=== PATIENT | male | born 1980 | race Caucasian/White ===

== ENCOUNTER 2019-09-25 13:56 | Inpatient (IN) | payer MEDICAID ==
[~2019-09-25] VITALS: Ht 175.3 cm; Wt 79.0 kg
[2019-09-25 14:00] VITALS: BP_SYST 146
--- NOTE | 2019-09-25 14:05 | NUR ---
Seizure precautions in place. Seizure pads applied to gurney. Side rails up.
--- NOTE | 2019-09-25 14:05 | NUR ---
Placed in room 03 . Placed on best worker, blood pressure machine and pulse oximeter. To gown for exam. Side rails up.
--- NOTE | 2019-09-25 14:10 | NUR ---
Patient to ER bed 03 to gown for evaluation. Side rails up.
--- NOTE | 2019-09-25 14:16 | NUR ---
Accucheck 132
--- NOTE | 2019-09-25 14:21 | NUR ---
Pt AAOx4, panamanian speaking[place] [facility] [place] tonic clonic seizures lasting 30 seconds each prior to arrival. Mild oral trauma, no active bleeding noted. Pt reports mild headache. Accucheck 136 on scene, Accucheck 132 upon triage. VSS. Skin pink dry and warm, breathing even and unlabored. No other injuries/complaints per pt/noted. Will continue to monitor.
--- NOTE | 2019-09-25 14:38 | NUR ---
Patient instructed that we need a urine sample. He verbalized understanding.
[2019-09-25 14:53] LABS: BASOPHILS % (AUTO) 0.8 % (0.0-2.0); EOSINOPHILS % (AUTO) 0.6 % (0.0-4.0); HEMATOCRIT 43.5 % (36-54); HEMOGLOBIN 14.7 g/dL (14.0-18.0); LYMPHOCYTES # (AUTO) 1.1 K/uL (1.0-5.5); MEAN CORPUSCULAR HEMOGLOBIN 33 pg (27-31); MEAN CORPUSCULAR HGB CONC 34 % (32-36); MEAN CORPUSCULAR VOLUME 96 fL (79.0-98.0); MONOCYTES # (AUTO) 0.8 K/uL (0.0-1.0); MONOCYTES % (AUTO) 13.7 % (1.7-9.3); NEUTROPHILS % (AUTO) 66.9 % (40.0-70.0); PLATELET COUNT (AUTO) 126 K/uL (130-430); RED BLOOD CELL COUNT(AUTO) 4.52 MIL/uL (4.2-6.2); WHITE BLOOD COUNT (AUTO) 5.9 K/uL (4.8-10.8)
[2019-09-25 15:05] LABS: ANION GAP 11 (5-15); CALCIUM 9.1 mg/dL (8.4-11.0); CHLORIDE 97 mmol/L (98-107); CREATININE 0.66 mg/dL (0.55-1.30); GLUCOSE 144 mg/dL (70-99); POTASSIUM 3.4 mmol/L (3.5-5.1); SODIUM SERUM 136 mmol/L (136-145); UREA NITROGEN, BLOOD 11 mg/dL (8-21)
[2019-09-25 15:11] LABS: ALANINE AMINOTRANSFERASE 134 U/L (12-78); ALBUMIN 4.3 g/dL (3.4-4.8); ASPARTATE AMINOTRANSFERASE 204 U/L (10-37); GFR AFRICAN AMERICAN 175 mL/min (>90)
[2019-09-25 15:13] LABS: ALCOHOL, BLOOD < 3 mg/dL (<10)
[2019-09-25] MEDS ORDERED: NACL 0.9% 1,000 ML IV ONE (16:00)
[2019-09-25] MEDS ORDERED: LORazepam 2 MG/ML VIAL IVP ONE (16:00)
[2019-09-25 16:21] LABS: BILIRUBIN,URINE 1+ (NEGATIVE); BLOOD, URINE 1+ (NEGATIVE); COLOR,URINE ORANGE (YELLOW); GLUCOSE,URINE NEGATIVE (NEGATIVE); KETONES,URINE TRACE (NEGATIVE); LEUKOCYTE ESTERASE ,URINE NEGATIVE (NEGATIVE); NITRITE, URINE NEGATIVE (NEGATIVE); PROTEIN URINE 3+ (NEGATIVE)
[2019-09-25 16:45] LABS: CLARITY/URINE SLIGHTLY HAZY (CLEAR)
[2019-09-25 16:48] LABS: BARBITURATE, URINE NEGATIVE (NEG <=200); BENZODIAZEPINE, URINE NEGATIVE (NEG <=150); CANNABINOID, URINE NEGATIVE (NEG <=50); COCAINE, URINE NEGATIVE (NEG <=150); METHAMPHETAMINES SCREEN,URINE POSITIVE (NEG <=500); OPIATE, URINE NEGATIVE (NEG <=100); PHENCYCLIDINE SCREEN,URINE NEGATIVE (NEG <=25); UR TRICYCLIC ANTIDEPRESSANTS NEGATIVE (NEG <=300); URINE METHADONE NEGATIVE (NEG <=200); URINE OXYCODONE SCREEN NEGATIVE (NEG <=100); URINE PROPOXYPHENE SCREEN NEGATIVE (NEG <=300)
[2019-09-25 16:49] LABS: URINE AMPHETAMINE NEGATIVE (NEG <=500)
[2019-09-25 16:52] LABS: RBC,URINE 0-3 /HPF (0-3)
[2019-09-25 16:53] LABS: BACTERIA,URINE FEW /HPF (None Seen); MUCUS,URINE 3+ /LPF (None Seen)
--- NOTE | 2019-09-25 16:55 | NUR ---
MD states patient is positive for metamphetamine and vitals reflect that, no further orders at this time.
--- NOTE | 2019-09-25 17:19 | NUR ---
Medication reconciliation completed with information provided by patient. Any prior medication reconciliation on file was reviewed and corrected.
[2019-09-25] MEDS ORDERED: HYDROcodone/ACETAMIN 10-325 MG TAB PO PRN (18:15)
[2019-09-25] MEDS ORDERED: BANANA BAG 1 EA, MVI 10 ML, THIAMINE HCL 100 MG, FOLIC ACID 1 MG, MAGNESIUM SULFATE 1 G... IV SCH ×5 (18:15)
[2019-09-25] MEDS ORDERED: ACETAMINOPHEN 325 MG TABLET PO PRN (18:15)
[2019-09-25] MEDS ORDERED: HYDROcodone/ACETAMIN 5-325 MG TAB (NORCO/ VICODIN) PO PRN (18:15)
[2019-09-25] MEDS ORDERED: LORazepam 2 MG/ML VIAL IVP PRN (18:15)
[2019-09-25] MEDS ORDERED: ONDANSETRON HCL 4 MG/2 ML VIAL IVP PRN (18:15)
--- NOTE | 2019-09-25 18:43 | NUR ---
Report called in to ANAT Briceño for continuation of care.
--- NOTE | 2019-09-25 18:55 | NUR ---
Transfer to 117A. EMT present. IV present no signs or symptoms of infiltration.
--- NOTE | 2019-09-25 19:05 | NUR ---
ADMISSION PATIENT TRANSPORTED VIA GURNEY. PATIENT EDUCATED SUPERVISOR HYDROCHLORIC AREA LIGHT, CALL LIGHT IS WITH PATIENT . SEIZURE PRECAUTIONS IN PLACE. PATIENT SHOWS NO SIGNS OF ANY DISTRESS, BREATHING IS EQUAL AND NON LABORED. PATIENT HAS NO OTHER NEEDS AT THIS TIME.
--- NOTE | 2019-09-25 19:15 | NUR ---
OPENING NOTE RECEIVED CARE OF PT AND SBAR REPORT. PT IS AAOX4, RESTING IN BED, NO S/S OF ACUTE DISTRESS. BREATHING IS UNLABORED TO ROOM AIR. NO SOB NOTED. PT INSTRUCTED TO USE CALL LIGHT FOR ANY ASSISTANCE. SEIZURE PADS ARE IN PLACE. SAFETY PRECAUTIONS ARE IN PLACE: BED IS LOCKED IN LOWEST POSITION, SIDE RAILS UP X2, CALL LIGHT WITH PT, BED ALARM ON. WILL MONITOR.
[2019-09-25] MEDS ORDERED: THIAMINE HCL 100 MG, MAGNESIUM SULFATE 1 GM in NS 100 ML IV SCH (19:30)
[2019-09-25] MEDS ORDERED: FOLIC ACID 1 MG, MVI 10 ML in NACL 0.9% 1,000 ML IV SCH (19:30)
[2019-09-25 20:00] VITALS: BP_SYST 144
[2019-09-25] MEDS: chlordiazePOXIDE HCL 25 MG CAPSULE PO SCH (21:24)
--- NOTE | 2019-09-25 21:25 | NUR ---
MEDICATION PASS SCHEDULED LIBRIUM ADMINISTERED. BANANA BAGS HUNG AND REGULATED TO INFUSE AT ORDERED RATE. IV IS PATENT. MEDICATION ACTIONS AND POTENTIAL SIDE EFFECTS DISCUSSED WITH PT, PT VERBALIZED UNDERSTANDING. NO S/S OF ACUTE DISTRESS. PT DENIES FURTHER NEEDS AT THIS TIME. SAFETY MAINTAINED. WILL MONITOR.
[2019-09-25 21:40] VITALS: BP_SYST 144
--- NOTE | 2019-09-25 23:47 | NUR ---
SLEEPING PT RESTING IN BED, APPEARS TO BE ASLEEP, SOFT SNORE CAN BE HEARD. NO S/S OF ACUTE DISTRESS. IVF INFUSING AT ORDERED RATE. NO SIGN OF PAIN OR DISCOMFORT. SAFETY AND FALL PRECAUTIONS ARE IN PLACE. WILL MONITOR.
[2019-09-26 00:15] VITALS: BP_SYST 138
--- NOTE | 2019-09-26 01:20 | NUR ---
RN NOTE: PT RESTING IN BED, APPEARS TO BE ASLEEP, SOFT SNORE CAN BE HEARD. NO S/S OF ACUTE DISTRESS. IVF INFUSING AT ORDERED RATE. NO SIGN OF PAIN OR DISCOMFORT. SAFETY AND FALL PRECAUTIONS ARE IN PLACE. WILL MONITOR.
--- NOTE | 2019-09-26 01:34 | NUR ---
CONSULTATION PAGED/CALLED Reason for Consultation: SEIZURE Person Who was Notified: LINDA Consulting Physician: LUKE CODY Ordering Physician: DR. FRENCH
--- NOTE | 2019-09-26 01:37 | NUR ---
CONSULTATION PAGED/CALLED Reason for Consultation: TRANSAMINITIS Person Who was Notified: LINDA Consulting Physician: DR. BALLESTEROS; INSPECTOR HEATING AND REFRIGERATION- DR. CARVAJAL Ordering Physician: DR. FRENCH
--- NOTE | 2019-09-26 03:41 | NUR ---
ROUNDS: PT RESTING IN BED WITH EYES CLOSED. BREATHING IS UNLABORED TO ROOM AIR, NO S/S OF ACUTE DISTRESS NOTED. IVF INFUSING AT ORDERED RATE. NO SIGN OF PAIN OR DISCOMFORT. SAFETY AND FALL PRECAUTIONS ARE IN PLACE. SEIZURE PADS ARE IN PLACE. WILL MONITOR.
--- NOTE | 2019-09-26 06:33 | NUR ---
CLOSING NOTE PT IS AAOX4, RESTING IN BED, NO S/S OF ACUTE DISTRESS. BREATHING IS UNLABORED TO ROOM AIR. NO SOB NOTED. PT HAS DENIED PAIN THROUGHOUT SHIFT. PT INSTRUCTED TO USE CALL LIGHT FOR ANY ASSISTANCE. SEIZURE PADS ARE IN PLACE. SAFETY PRECAUTIONS ARE IN PLACE: BED IS LOCKED IN LOWEST POSITION, SIDE RAILS UP X2, CALL LIGHT WITH PT, BED ALARM ON. WILL ENDORSE TO DAY SHIFT RN.
--- NOTE | 2019-09-26 07:15 | NUR ---
RN OPENING NOTE REPORT WAS ENDORSED BY NIGHT NURSE. PATIENT IS AWAKE AND ALERT, SITTING UP IN BED, NO SIGNS OF ANY DISTRESS,BREATHING IS EQUAL AND NON LABORED. EDUCATED LIGHT RAIL VEHICLE OPERATOR LIGHT , CALL LIGHT IS WITH PATIENT. PATIENT HAS NO OTHER NEEDS AT THIS TIME. WILL CONTINUE TO MONITOR.
[2019-09-26 07:42] LABS: HEMATOCRIT 41.2 % (36-54); HEMOGLOBIN 13.9 g/dL (14.0-18.0); MEAN CORPUSCULAR HEMOGLOBIN 33 pg (27-31); MEAN CORPUSCULAR HGB CONC 34 % (32-36); PLATELET COUNT (AUTO) 111 K/uL (130-430); RED BLOOD CELL COUNT(AUTO) 4.23 MIL/uL (4.2-6.2)
[2019-09-26 07:54] LABS: ALBUMIN 3.6 g/dL (3.4-4.8); CALCIUM 8.5 mg/dL (8.4-11.0); CREATININE 0.46 mg/dL (0.55-1.30); POTASSIUM 3.4 mmol/L (3.5-5.1); TOTAL BILIRUBIN 1.1 mg/dL (0.0-1.0)
[2019-09-26 08:43] LABS: MEAN CORPUSCULAR VOLUME 98 fL (79.0-98.0)
[2019-09-26 08:50] VITALS: BP_SYST 150
[2019-09-26] MEDS ORDERED: THIAMINE HCL 100 MG TABLET PO SCH (09:00)
[2019-09-26] MEDS ORDERED: FOLIC ACID 1 MG TABLET PO SCH (09:00)
[2019-09-26] MEDS ORDERED: MULTIVITAMINS TAB 1 TABLET PO SCH (09:00)
[2019-09-26] MEDS: chlordiazePOXIDE HCL 25 MG CAPSULE PO SCH ×2 (09:06→14:49)
--- NOTE | 2019-09-26 09:08 | NUR ---
MEDICATION/ GI MD AT BED SIDE PATIENTS SCHEDULED MEDICATION GIVEN ORDERED. PATIENT IS AWAKE AND ALERT SITTING UP IN BED NO SIGNS OF ANY DISTRESS, BREATHING IS EQUAL AND NON LABORED. PATIENT HAS ALL SEIZURE PRECAUTIONS IN PALACE. EDUCATED EXECUTIVE SALES MANAGER LIGHT, CALL LIGHT IS WITH PATIENT. PATIENT VERBALIZED UNDERSTANDING. PATIENT HAS NO COMPLAINTS AT THIS TIME. WILL CONTINUE TO MONITOR.
[2019-09-26 09:34] LABS: ATYPICAL LYMPHOCYTES % 0 % (0-0); BAND % (MANUAL) 0 % (0-6); BASOPHILS % (MANUAL) 0 % (0-2); EOSINOPHILS % (MANUAL) 2 % (0-7); LYMPHOCYTES % (MANUAL) 22 % (20-46); MONOCYTES % (MANUAL) 14 % (0-11)
[2019-09-26 11:04] LABS: PROTHROMBIN TIME 10.3 SECS (9.5-12.5)
--- NOTE | 2019-09-26 11:30 | NUR ---
rn rounding patient is awake and alert. family visiting at bed side. patient has no complaints at this time. patient educated associate professor of economics light, call light is with patient.no signs of any distress, breathing is equal and non labored. will continue to monitor.
--- NOTE | 2019-09-26 12:06 | NUR ---
SS NOTES: PRINCIPAL PROCESS ENGINEER was referred by nursing to see patient for ETOH and DCPA. 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 PRINCIPAL PROCESS ENGINEER met with patient and friends at bedside and stated purpose of visit. Pt agreed for his friend Bobo to translate. Pt is awake and oriented x4 (time, place, person, situation) but disheveled. Pt was cooperative with good eye contact with normal mood and appropriate affect. Pt's speech was normal. Pt is a 39 y/o single male who came in via ED due to dizziness and fall. Pt stated that at 13:30 yesterday, he fell at work and was brought to the ED by his co-workers. Pt stated he was feeling fine in the AM, and does not know why he fell. Pt states he lives with his 2 brothers and he is independent with his ADL's. Pt does not use any DMEs. 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 Pt states he drinks beer and vodka daily (3 beers and 1 bottle of vodka, unknown amount) for 2 years now. Pt denies drug use/abuse and denies having problems with the law (DUI). Pt states he thinks he has a problem with alcohol but "a little bit". Pt denies any detox treatments in the past and denies depression/anxiety/mental health. Pt denies history of suicide ideation/homicidal ideation. PRINCIPAL PROCESS ENGINEER provided pt with [facility], Detox Treatments, Substance Abuse, Outpt Mental Health. Jatin from [facility] met with patient already. No further SS needs identified at this time, but SS will remain available for support.
[2019-09-26 12:58] VITALS: BP_SYST 147
--- NOTE | 2019-09-26 14:55 | NUR ---
MEDICATION PATIENTS SCHEDULED MEDICATION GIVEN ORDER. PATIENT HAS FAMILY AT BED SIDE. NO COMPLAINTS AT THIS TIME. CALL LIGHT IS WITH PATIENT, EDUCATED TO USE FOR ASSISTANCE. PATIENT SHOWS NO SIGNS OF ANY DISTRESS. WILL CONTINUE TO MONITOR.
[2019-09-26 16:20] VITALS: BP_SYST 147
[2019-09-26] MEDS ORDERED: LIB25 PO (16:26)
[2019-09-26] MEDS ORDERED: Thiamine Hcl PO (16:26)
[2019-09-26] MEDS ORDERED: Multivitamins Tab PO (16:26)
[2019-09-26] MEDS ORDERED: FOLI-43 PO (16:26)
--- NOTE | 2019-09-26 16:26 | NUR ---
PAGING DR. FAVIAN DUMONT PLACED DISCHARGE ORDER OK TO DISCHARGE PATIENT IS CLEARED BY GI. PATIENT IS AWAKE AND ALERT SITTING IN BED NO COMPLAINTS AT THIS TIME. CALL LIGHT IS WITH HIM EDUCATED TO USE CALL LIGHT FOR ASSISTANCE. PATIENT HAS NO OTHER NEEDS AT THIS TIME. WILL CONTINUE TO MONITOR.
--- NOTE | 2019-09-26 16:39 | NUR ---
dr. raji paez with ok to discharge patient on gi. patient and md made aware
[2019-09-26 17:07] VITALS: BP_SYST 147
--- NOTE | 2019-09-26 19:03 | NUR ---
DISCHARGE MACARONI MAKER USED FOR PATIENTS DISCHARGE # [id number]. PATIENT EDUCATED ON DISCHARGE PACKET, NO FURTHER QUESTIONS. PATIENT WRITTEN SCRIPT FOR CONTROL SUBSTANCE GIVEN TO PATIENT. PATIENT REMOVED IV HIMSELF AND PLACE TAPE OVER THE SITE. ID BAND REMOVED.PATIENT GIVEN FLU SHOT REQUESTED. PATIENT HAS ALL HIS BELONGINGS WITH HIM. PATIENT HAS NO FURTHER COMPLAINTS. PATIENT WHEELED OUT VIA WHEELCHAIR TO PRIVATE AUTO BROTHER.
[2019-09-26] MEDS ORDERED: FLU VACC QS2019-20 36MOS UP/PF 60 MCG/0.5 ML SYRINGE I.M. PRN (20:00)
== END 2019-09-26 19:03 | disposition home or self-care (01) | DRG 53 ==
LOC: SED 13:56 → SMU 16:20
PROVIDERS: ADMIT Preventive Medicine Preventive Medicine/Occupational Environmental Medicine; ATTEND Preventive Medicine Preventive Medicine/Occupational Environmental Medicine
DX: G40.409 Other generalized epilepsy and epileptic syndromes, not intractable, without status epilepticus (principal); F10.231 Alcohol dependence with withdrawal delirium; E72.20 Disorder of urea cycle metabolism, unspecified; K70.9 Alcoholic liver disease, unspecified; E87.5 Hyperkalemia; N39.0 Urinary tract infection, site not specified; S00.512A Abrasion of oral cavity, initial encounter; X58.XXXA Exposure to other specified factors, initial encounter; R73.9 Hyperglycemia, unspecified; Y93.89 Activity, other specified; Y92.89 Other specified places as the place of occurrence of the external cause; Y99.8 Other external cause status
CPT/HCPCS: 36415; 70450-TC; 76700-TC; 80053; 80307; 81000-TC; 82140-TC; 82550-TC; 85007; 85025; 85027; 85610-TC; 93005; 96361; 96374; 99285; G0482; J2060; J3411; J3475; J3490; J7030; J7060